=== PATIENT | female | born 1945 | race Hispanic/Latino ===

== ENCOUNTER 2017-11-18 07:53 | Day surgery (SDC) | payer OTHER ==
[~2017-11-18] VITALS: Ht 160 cm; Wt 53.0 kg
[~2017-11-18 07:53] MED LIST: AMLO5TAB2 PO; ASPI-1026 PO; BIOT25008 PO; CALC1TAB2 PO; ESCI5TAB PO; FOLI1TAB85 PO; GABA-529 PO; LACT1CAP78 PO; LEVO75TA10 PO; SIMV20TA6 PO; SODIUM CHLORIDE 0.9% 1000ML 1,000 ML IV ONE; TRAZ-187 PO; XALA2.5OS OU
[2017-11-18 08:14] VITALS: BP 122/67
[2017-11-18 10:14] VITALS: BP 88/80
== END 2017-11-18 10:45 | disposition home or self-care (01) ==
LOC: ENDO 07:53 → DAH 07:53 → ENDO 10:45
PROVIDERS: ATTEND Internal Medicine Gastroenterology
DX: K58.1 Irritable bowel syndrome with constipation (principal); K56.2 Volvulus; Z86.73 Personal history of transient ischemic attack (TIA), and cerebral infarction without residual deficits; M19.90 Unspecified osteoarthritis, unspecified site; E78.5 Hyperlipidemia, unspecified; D64.9 Anemia, unspecified; F32.9 Major depressive disorder, single episode, unspecified; H40.9 Unspecified glaucoma; I12.9 Hypertensive chronic kidney disease with stage 1 through stage 4 chronic kidney disease, or unspecified chronic kidney disease; N18.9 Chronic kidney disease, unspecified; Z88.0 Allergy status to penicillin; Z88.2 Allergy status to sulfonamides; Z79.899 Other long term (current) drug therapy
CPT/HCPCS: 45378; 93005; A4606; J7030